=== PATIENT | female | born 1975 | race Caucasian/White ===

== ENCOUNTER 2020-07-10 07:28 | Inpatient (IN) | payer OTHER ==
--- NOTE | 2020-07-10 08:34 | PDOC ---
History of Present Illness - General Chief Complaint: Chest Pain Stated Complaint: CHEST PAIN Time Seen by Provider: 07/10/20 07:47 - History of Present Illness Initial Comments: 07/10/20 08:25 45-year-old female with a history of COVID complicated by cardiomyopathy presents to the emergency department with progressive chest pressure as well as arrhythmias while at work. Patient works as an L&D nurse and has been experiencing worsening fatigue over the span of 5 months. Overnight while on shift, the patient began to experience chest pressure and was connected to a air sampling and monitoring and was noted to have several wide-complex beats as well as a tachyarrhythmia. The patient reports that the wide complexes resolved on their own, but she has residual chest discomfort in the center of her chest. The pain does not radiate. She also reports associated shortness of breath and exertional fatigue. Denies any fevers, chills, cough, headache, focal weakness or numbness, abdominal pain, urinary symptoms, lower extremity edema. Denies any history of clots. Last menstrual period was July 06. The patient has been seen by a cheese factory worker at [employer] and had a Holter monitor which revealed wide-complex tachycardias that self resolved. Had an echo weeks ago and was also told she may have some mitral regurgitation. She was referred to a commercial carpet installer but has had difficulty following up due to the pandemic. A few months ago, the patient was diagnosed with raynaud's when her hands began to turn blue in the cold. Past History - Medical History Allergies/Adverse Reactions: Allergies Allergy/AdvReac Type Severity Reaction Status Date / Time doxycycline Allergy Verified 07/10/20 07:32 Home Medications: Ambulatory Orders Metoclopramide HCl [Reglan] 5 mg PO DAILY 07/10/20 Pantoprazole Sodium [Protonix] 40 mg PO DAILY 07/10/20 Anemia: No Asthma: Yes Cancer: No Cardiac Disorders: Yes CVA: No COPD: No CHF: No Dementia: No Diabetes: No GI Disorders: Yes (IBS CONSTIPATION) Disorders: No HTN: No Hypercholesterolemia: No Liver Disease: No Seizures: No Thyroid Disease: No - Surgical History Abdominal Surgery: No Appendectomy: No Cardiac Surgery: No Cholecystectomy: No Lung Surgery: No Neurologic Surgery: No Orthopedic Surgery: No - Reproductive History Is Patient Now?: No - Immunization History Td Vaccination: Yes TDAP Vaccination: Yes Immunization Up to Date: Yes - Psycho-Social/Smoking History Smoking Status: No Smoking History: Never smoked Number of Cigarettes Smoked Daily: 0 - Substance Abuse Hx (Audit-C & DAST Scrn) How often the patient has a drink containing alcohol: Monthly or less Score: In Men: 4 or > Positive; In Women: 3 or > Positive: 1 Screen Result (Pos requires Nsg. Audit-10AR): Negative In the last yr the pt used illegal drug/Rx for NonMed reason: No Score: Yes response is considered Positive: 0 Screen Result (Positive result requires Nsg. DAST-10): Negative Review of Systems - Review of Systems Comments:: 07/10/20 08:34 GENERAL/CONSTITUTIONAL: No fever or chills. No weakness. +fatigue HEAD, EYES, EARS, NOSE AND THROAT: No change in vision. No ear pain or discharge. No sore throat. GASTROINTESTINAL: No nausea, vomiting, diarrhea or constipation. GENITOURINARY: No dysuria, frequency, or change in urination. CARDIOVASCULAR: +chest pain and shortness of breath. RESPIRATORY: No cough, wheezing, or hemoptysis. MUSCULOSKELETAL: No joint or muscle swelling or pain. No neck or back pain. SKIN: No rash NEUROLOGIC: No headache, vertigo, loss of consciousness, or change in strength/sensation. ENDOCRINE: No increased thirst. No abnormal weight change. HEMATOLOGIC/LYMPHATIC: No anemia, easy bleeding, or history of blood clots. ALLERGIC/IMMUNOLOGIC: No hives or skin allergy. *Physical Exam - Vital Signs Last Vital Signs Temp Pulse Resp BP Pulse Ox 97.9 F 84 18 137/81 100 07/10/20 07:32 07/10/20 07:32 07/10/20 07:32 07/10/20 07:32 07/10/20 07:32 - Physical Exam 07/10/20 08:35 GENERAL: Awake, alert, and fully oriented, in no acute distress EYES: PERRLA, EOMI, sclera anicteric, conjunctiva clear ENT: Nares patent, oropharynx clear without exudates. Moist mucosa NECK: Normal ROM, supple, no lymphadenopathy, JVD, or masses LUNGS: Breath sounds equal, clear to auscultation bilaterally. No wheezes, and no crackles HEART: Regular rate and rhythm, normal S1 and S2, no murmurs, rubs or gallops ABDOMEN: Soft, nontender, normoactive bowel sounds. No guarding, no rebound. No masses EXTREMITIES: Normal range of motion, no edema. No clubbing or cyanosis. No cords, erythema, or tenderness NEUROLOGICAL: Normal speech, cranial nerves intact, 5/5 strength in all 4 extremities, normal sensation to light touch in all 4 extremities, normal cerebellar exam, normal gait SKIN: Warm, Dry, normal turgor, no rashes or lesions noted. Heart Score/ECG Review #1 07/10/20 11:19 Twelve-lead EKG was performed and reviewed by me. Normal sinus rhythm, rate 79. Normal axis. Sinus arrhythmia noted, likely secondary to respiratory variation. No ST elevations. ED Treatment Course - LABORATORY CBC & Chemistry Diagram: 07/10/20 08:10 07/10/20 08:10 - RADIOLOGY Radiology Studies Ordered: Category Date Time Status CHEST X-RAY PORTABLE* [RAD] Stat Radiology 07/10/20 07:53 Ordered Medical Decision Making - Critical Care Time Total Critical Care Time (minutes): 35 Critical Care Statement: The care of this patient involved high complexity decision making to prevent further life threatening deterioration of the patient's condition and/or to evaluate & treat vital organ system(s) failure or risk of failure. 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 Perez, he will discuss the case with the cheese factory worker that the patient saw at [facility]. He states he will come in to see the patient today. He recommends admission to telemetry. Case discussed with Dr. Ball, patient accepted for admission under Dr. Gallo's service. The patient is clinically stable and has no complaints at this time Case discussed in detail with admitting physician including history, physical exam and ancillary studies. Admitting physician has assumed care for the patient, will follow all pending diagnostics and will complete the evaluation and treatment. Discharge - Discharge Information Problems reviewed: Yes Clinical Impression/Diagnosis: Tachyarrhythmia, Ventricular tachycardia, Chest pain, Shortness of breath, Weakness - Follow up/Referral - Patient Discharge Instructions - Post Discharge Activity
[2020-07-10 08:52] LABS: INR 1.01 (0.83-1.09); PROTHROMBIN TIME (PATIENT) 11.9 SEC (9.7-13.0)
[2020-07-10 08:55] LABS: ACTIVATED PTT 27.5 SECONDS (25.2-36.5)
[2020-07-10 09:24] LABS: ALBUMIN 3.6 g/dl (3.4-5.0); ALK PHOS 69 U/L (45-117); ANION GAP 5 MMOL/L (8-16); BILIRUBIN,TOTAL 1.3 mg/dL (0.2-1); CALCIUM 8.8 mg/dL (8.5-10.1); CHLORIDE 107 mmol/L (98-107); CO2 25 mmol/L (21-32); CREATININE 0.8 mg/dL (0.55-1.3); GLUCOSE,RANDOM 100 mg/dL (74-106); N-TERMINAL BNP 97.2 pg/ml (5-125); POTASSIUM 3.8 mmol/L (3.5-5.1); SGOT/AST 29 U/L (15-37); SGPT/ALT 38 U/L (13-61); SODIUM 137 mmol/L (136-145); TOT PROT 7.2 g/dl (6.4-8.2)
[2020-07-10 09:27] LABS: BASO % 0.3 % (0-2.0); EOS % 1.4 % (0-4.5); HEMATOCRIT 43.5 % (32.4-45.2); HEMOGLOBIN 14.3 GM/dL (10.7-15.3); LYMPH % 45.1 % (8-40); MCH 31.7 pg (25.7-33.7); MCHC 32.9 g/dl (32.0-36.0); MEAN CELL VOLUME 96.5 fl (80-96); MONO % 10.9 % (3.8-10.2); NEUT % 42.3 % (42.8-82.8); PLATELET COUNT 293 K/MM3 (134-434); RBC 4.51 M/mm3 (3.60-5.2); RDW 13.7 % (11.6-15.6); WHITE BLOOD COUNT 9.4 K/mm3 (4.0-10.0)
--- NOTE | 2020-07-10 10:33 | EKG ---
Test Reason : Blood Pressure : / mmHG Vent. Rate : 079 BPM Atrial Rate : 079 BPM P-R Int : 120 ms QRS Dur : 078 ms QT Int : 380 ms P-R-T Axes : 069 032 046 degrees QTc Int : 435 ms NORMAL SINUS RHYTHM WITH SINUS ARRHYTHMIA NORMAL ECG WHEN COMPARED WITH ECG OF 26-SEP-2016 03:26, RSR' PATTERN IN V1 IS NO LONGER PRESENT Confirmed by UVALDO GRADY MD ([id number]) on 07/10/2020 10:33:36 AM Referred By: Confirmed By:UVALDO GRADY MD
--- NOTE | 2020-07-10 11:29 | HP ---
CHIEF COMPLAINT: chets pressure; palpitations PCP: HISTORY OF PRESENT ILLNESS: 45 y.o female with PMH of COVID 19 (diganosed back in january), IBS, newly diagnosed raynauds presents to the ED with complaints of palpitations and chest pressure that started during her care professional last night- of note patients init ial presenting symptoms of covid were wide-complex tachycardia (specifically v- tach) along with chest pressure, she has since then been having these episodes where she gets palpitations associated with ELLISON, some arm radiation and slight dizziness if she is ambulatory. she had seen 2 cardiologists one back in january where a 2 week holter monitor was done and then around a month ago, where she was referred to an eating disorder specialist however she has not had the chance to see him yet. last night episode was different than her usual symptoms in the fact that is was consistent throughout her whole shift- it did not dissipate and she was very symptomatic she was hooked up to a tele monitor at work and she was having multiple episodes of 45 y.o female with PMH of COVID 19 (diganosed back in january), IBS, newly diagnosed raynauds presents to the ED with complaints of palpitations and chest pressure that started during her care professional last night- (1)afebrile; normotenisve; multiple tele strips showing NSVT (with rates in the 160;s) multiple episodes of vtach (2)wbc normal; K 3.8 Cr 0,8 mag 2.0 (3)CXR negative; CTA showed no PE however revealed 2 lung nodules Recent Travel: denies PAST MEDICAL HISTORY: see above PAST SURGICAL HISTORY: colorectal surgery , inguinal hernia repair Social History: Smoking:denies Alcohol:social alcohol use Drugs: denies Allergies doxycycline Allergy (Verified 07/10/20 07:32) HOME MEDICATIONS: Home Medications Medication Instructions Recorded Metoclopramide HCl [Reglan] 5 mg PO DAILY 07/10/20 Pantoprazole Sodium [Protonix] 40 mg PO DAILY 07/10/20 REVIEW OF SYSTEMS CONSTITUTIONAL: Absent: fever, chills, diaphoresis, generalized weakness, malaise, loss of appetite, weight change HEENT: Absent: rhinorrhea, nasal congestion, throat pain, throat swelling, difficulty swallowing, mouth swelling, ear pain, eye pain, visual changes CARDIOVASCULAR: Present: palpitations Absent: chest pain, syncope, palpitations, irregular heart rate, lightheadedness, peripheral edema RESPIRATORY: Absent: cough, shortness of breath, dyspnea with exertion, orthopnea, wheezing, stridor, hemoptysis GASTROINTESTINAL: Absent: abdominal pain, abdominal distension, nausea, vomiting, diarrhea, constipation, melena, hematochezia GENITOURINARY: Absent: dysuria, frequency, urgency, hesitancy, hematuria, flank pain, genital pain MUSCULOSKELETAL: Absent: myalgia, arthralgia, joint swelling, back pain, neck pain SKIN: Absent: rash, itching, pallor HEMATOLOGIC/IMMUNOLOGIC: Absent: easy bleeding, easy bruising, lymphadenopathy, frequent infections ENDOCRINE: Absent: unexplained weight gain, unexplained weight loss, heat intolerance, cold intolerance NEUROLOGIC: Absent: headache, focal weakness or paresthesias, dizziness, unsteady gait, seizure, mental status changes, bladder or bowel incontinence PSYCHIATRIC: Absent: anxiety, depression, suicidal or homicidal ideation, hallucinations. PHYSICAL EXAMINATION Vital Signs - 24 hr 07/10/20 07/10/20 07/10/20 07:32 09:03 10:03 Temperature 97.9 F Pulse Rate 84 Pulse Rate [ 77 77 Left Apical] Respiratory 18 100 H 18 Rate Blood Pressure 137/81 Blood Pressure 125/80 112/79 [Left Arm] O2 Sat by Pulse 100 100 99 Oximetry (%) 07/10/20 10:56 Temperature Pulse Rate Pulse Rate [ 70 Left Apical] Respiratory 18 Rate Blood Pressure Blood Pressure 105/70 [Left Arm] O2 Sat by Pulse 99 Oximetry (%) GENERAL: Awake, alert, and fully oriented, in no acute distress. EYES: PEERLA: EOMI no scleral icterus NECK: no JVD; no lymphadenopathy LUNGS: CTA B/L no rales, rhonchi or wheezing HEART: RRR, normal S1 and S2 without murmur, rub or gallop. ABDOMEN: Soft, NT ND +BS in all 4 quadrants MUSCULOSKELETAL: Normal range of motion at all joints. No bony deformities or tenderness. No CVA tenderness. EXTREMITIES: warm; well-perfused no clubbing/cyanosis or edema NEUROLOGICAL: Cranial nerves II-XII intact. Normal speech. Normal gait. PSYCHIATRIC: Cooperative. Good eye contact. Appropriate mood and affect. SKIN: Warm, dry, normal turgor, no rashes or lesions noted, normal capillary refill. Laboratory Results - last 24 hr 07/10/20 07/10/20 07/10/20 08:10 08:10 08:10 WBC 9.4 RBC 4.51 Hgb 14.3 Hct 43.5 MCV 96.5 H MCH 31.7 MCHC 32.9 RDW 13.7 Plt Count 293 MPV 10.0 Absolute Neuts (auto) 4.0 Neutrophils % 42.3 L Lymphocytes % 45.1 H Monocytes % 10.9 H Eosinophils % 1.4 Basophils % 0.3 Nucleated RBC % 0 PT with INR 11.90 INR 1.01 PTT (Actin FS) 27.5 Sodium Potassium Chloride Carbon Dioxide Anion Gap BUN Creatinine Est GFR (CKD-EPI)AfAm Est GFR (CKD-EPI)NonAf Random Glucose Calcium Magnesium Total Bilirubin AST ALT Alkaline Phosphatase Troponin I B-Natriuretic Peptide Total Protein Albumin TSH Serum , Qual Negative Blood Type Antibody Screen 07/10/20 07/10/20 08:10 08:10 WBC RBC Hgb Hct MCV MCH MCHC RDW Plt Count MPV Absolute Neuts (auto) Neutrophils % Lymphocytes % Monocytes % Eosinophils % Basophils % Nucleated RBC % PT with INR INR PTT (Actin FS) Sodium 137 Potassium 3.8 Chloride 107 Carbon Dioxide 25 Anion Gap 5 L BUN 13.0 Creatinine 0.8 Est GFR (CKD-EPI)AfAm 103.92 Est GFR (CKD-EPI)NonAf 89.66 Random Glucose 100 Calcium 8.8 Magnesium 2.0 Total Bilirubin 1.3 H AST 29 ALT 38 Alkaline Phosphatase 69 Troponin I < 0.02 B-Natriuretic Peptide 97.2 Total Protein 7.2 Albumin 3.6 TSH 1.95 Serum , Qual Blood Type O POSITIVE Antibody Screen Negative ASSESSMENT/PLAN: 45 y.o female with PMH of COVID 19 (diganosed back in january), IBS, newly diagnosed raynauds presents to the ED with complaints of palpitations and chest pressure that started during her care professional last night #Palpitations tele strips showing NSVT as well as wide complex tachycardia -Dr Perez consulted; -echo ordered to assess for any structural abnormalities -TSH ordered -ensure Mag >2 K >4 -tele monitoring -patient may need to be started on beta blockade or other rate controlling agent -EP workup as ablation may be needed -NS bolus #IBS c/w protonix 40 daily c/w reglan 5 daily f/e/n not on standing fluids monitor electrolytes soidum controlled diet dipso: tele dvt ppx: lovenox Family Medical History Family History: As Documented Family Hx Cardiac Disorders: Father Problem List - Problem (1) Chest pain Code(s): R07.9 - CHEST PAIN, UNSPECIFIED (2) Shortness of breath Code(s): R06.02 - SHORTNESS OF BREATH (3) Tachyarrhythmia Code(s): R00.0 - TACHYCARDIA, UNSPECIFIED (4) Ventricular tachycardia Code(s): I47.2 - VENTRICULAR TACHYCARDIA Visit type - Emergency Visit Emergency Visit: Yes ED Registration Date: 07/10/20 Care time: The patient presented to the Emergency Department on the above date and was hospitalized for further evaluation of their emergent condition. - New Patient This patient is new to me today: Yes Date on this admission: 07/10/20 - Critical Care Critical Care patient: No ATTENDING PHYSICIAN STATEMENT I saw and evaluated the patient. I reviewed the resident's note and discussed the case with the resident. I agree with the resident's findings and plan as documented. SUBJECTIVE: OBJECTIVE: ASSESSMENT AND PLAN:
--- NOTE | 2020-07-10 11:35 | PN ---
Teaching Attending Note Name of Resident: Taryn Ball ATTENDING PHYSICIAN STATEMENT I saw and evaluated the patient. I reviewed the resident's note and discussed the case with the resident. I agree with the resident's findings and plan as documented. 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 Patient reports last night was not her usual palpitations due to increased duration of symptoms and she did not have the episode self-resolve. Pt at her place of work was put onto telemetry monitoring which exhibited wide-complex monomorphic tachycardia while patient had ongoing lightheadedness and diffuse chest pressure symptoms. Of note, pt had COVID-19 infection during January 2020 where she was noted to develop monomorphic Ventricular tachycardia. Since then she would have intermittent episodes of dyspnea with exertion and associated lightheadedness while ambulatory. Patient has seen two cardiologists in January (last visit: Dr. Norma Piedra 01/15) where she was evaluated with holter monitor and was subsequently sent for EP referral. She has not been able to see the EP physician as of yet. PAST SURGICAL HISTORY: colorectal surgery , inguinal hernia repair Social History: Smoking:denies Alcohol:social alcohol use Drugs: denies Allergies doxycycline Allergy (Verified 07/10/20 07:32) OBJECTIVE: Vital Signs Temperature 97.9 F 07/10/20 07:32 Pulse Rate 73 07/10/20 11:37 Respiratory Rate 18 07/10/20 11:37 Blood Pressure 113/78 07/10/20 11:37 O2 Sat by Pulse Oximetry (%) 97 07/10/20 11:37 GENERAL: Awake, alert, and fully oriented, in no acute distress. HEENT: no scleral icterus, MMM NECK: no JVD, no thyromegaly or nodulation appreciated, no carotid bruits LUNGS: CTA B/L no rales, rhonchi or wheezing HEART: RRR, normal S1 and S2 with 2/6 systolic murmur at apex without radiation to axilla ABDOMEN: Soft, ND/NT, +BS EXTREMITIES: warm; well-perfused no edema PSYCHIATRIC: Cooperative. Good eye contact. Appropriate mood and affect. SKIN: Warm, dry, no rashes or lesions noted CBC, BMP 07/10/20 08:10 09/04/20 08:10 ASSESSMENT AND PLAN: Symptomatic Wide-complex Tachyarrhythmias Hyperlipidemia with low risk ASCVD cohort score History of Reynaud's Phenomenon History of GERD --Given symptomatic tachyarrhythmia will admit to telemetry with cardiology consulted --Obtain information from patient's neurology technician and EP physician she was to see --Obtain echocardiogram from [facility]'s; if unable to do so then patient will need another study to be performed for structural heart changes --Trend troponins for x2 negative given cardiac symptoms per patient --Monitor electrolytes and replete as needed --Continue diet and exercise for ASCVD <0.3% with hyperlipidemia noted on October studies --Continue home medications Dispo: Telemetry; pending cardiology consult --> EP needed inpatient vs. home with outpatient f/u if symptoms resolve and HR remains controlled DO Krystle Quiroz IM
--- NOTE | 2020-07-10 14:10 | CON.CARD ---
Consult Consult Specialty:: Cardiology Referred by:: Emergency Medicine Reason for Consultation:: PSVT, PVC, PAC - History of Present Illness Chief Complaint: Chest pain, palpitations History of Present Illness: 45yo F with h/o GERD, IBS, Raynaud's phenomenon, hyperlipidemia, palpitations, PVC, last saw Dr. 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 Patient reports last night was not her usual palpitations due to increased duration of symptoms and she did not have the episode self-resolve. Pt at her place of work was put onto telemetry monitoring which exhibited PSVT, PVC, PAC while patient had ongoing lightheadedness and diffuse chest pressure symptoms. Of note, pt had COVID-19 infection during January 2020 where she was noted to deve lop monomorphic Ventricular tachycardia. Since then she would have intermittent episodes of dyspnea with exertion and associated lightheadedness while ambulatory. Patient has seen two cardiologists in January where she was evaluated with holter monitor and was subsequently sent for EP referral. She has not been able to see the EP physician as of yet. PAST SURGICAL HISTORY: colorectal surgery , inguinal hernia repair Social History: Smoking:denies Alcohol:social alcohol use Drugs: denies - History Source History Provided By: Patient Limitations to Obtaining History: No Limitations - Past Medical History ...LMP: 07/06/20 ...: No - Alcohol/Substance Use Hx Alcohol Use: Yes - Smoking History Smoking history: Never smoked Aproximately how many cigarettes per day: 0 Home Medications - Allergies Allergies/Adverse Reactions: Allergies Allergy/AdvReac Type Severity Reaction Status Date / Time apple Allergy Verified 07/10/20 13:03 doxycycline Allergy Verified 07/10/20 07:32 gluten Allergy Verified 07/10/20 13:02 - Home Medications Home Medications: Ambulatory Orders Metoclopramide HCl [Reglan] 5 mg PO DAILY 07/10/20 Pantoprazole Sodium [Protonix] 40 mg PO DAILY 07/10/20 Plecanatide [Trulance] 3 mg PO DAILY 07/10/20 Family Medical History Family Hx Cardiac Disorders: Father Review of Systems - Review of Systems Cardiovascular: reports: Chest Pain, Palpitations, Shortness of Breath Respiratory: reports: Exercise Intolerance, SOB, SOB on Exertion Vital Signs: Vital Signs Temperature 97.9 F 07/10/20 07:32 Pulse Rate 73 07/10/20 11:37 Respiratory Rate 18 07/10/20 11:37 Blood Pressure 113/78 07/10/20 11:37 O2 Sat by Pulse Oximetry (%) 97 07/10/20 11:37 Constitutional: Yes: No Distress, Calm Neck: Yes: Supple Respiratory: Yes: Regular, CTA Bilaterally Gastrointestinal: Yes: Normal Bowel Sounds, Soft Cardiovascular: Yes: Regular Rate and Rhythm JVD: No Carotid Bruit: No Heart Sounds: Yes: S1, S2 Edema: No - Other Data Labs, Other Data: CBC, BMP 07/10/20 08:10 07/10/20 08:10 INR, PTT INR 1.01 (0.83-1.09) 07/10/20 08:10 Troponin, BNP 07/10/20 08:10 Troponin I < 0.02 B-Natriuretic Peptide 97.2 Troponin, BNP 07/10/20 08:10 Troponin I < 0.02 B-Natriuretic Peptide 97.2 NSR @ 79 Tele: PSVT, PAC, PVC Echo: Report Reviewed Ejection Fraction %: LVEF > or = 40 % Imaging - Results Chest X-ray: Report Reviewed (NAD) Problem List - Problems (1) PVC (premature ventricular contraction) Code(s): I49.3 - VENTRICULAR PREMATURE DEPOLARIZATION (2) PAC (premature atrial contraction) Code(s): I49.1 - ATRIAL PREMATURE DEPOLARIZATION (3) PSVT (paroxysmal supraventricular tachycardia) Code(s): I47.1 - SUPRAVENTRICULAR TACHYCARDIA (4) Chest pain Code(s): R07.9 - CHEST PAIN, UNSPECIFIED Qualifiers: Chest pain type: precordial pain Qualified Code(s): R07.2 - Precordial pain (5) Shortness of breath Code(s): R06.02 - SHORTNESS OF BREATH (6) Intermittent palpitations Code(s): R00.2 - PALPITATIONS Assessment/Plan 07/10/2020 Chest CTA: No PE, 0.3 cm new RUL nodule and unchanged 0.2 cm TODD nodule c/w 09/16/2015 07/10/2020 TTE: Normal LV and RV size and fxn LVEF 55-60%, tr MR, tr-mild TR, no AR or , tr DC 07/10/2020 ECG: NSR @ 79 QTc 435 msec 1. Palpitations, chest pain, dyspnea referable to PSVT, PAC, PVC 2. Possible Raynauds phenomenon 3. GERD, IBS 4. Pulm nodules P:1. D/w patient and 2. Trial of Toprol XL 25 qd with monitor Raynauds symptoms and uptitration as tolerated 3. Addressed EP study and RFA ablation as definitive therapy, they prefer to seek consult with [facility] 4. Ruled out for [place], TSH reviewed, repeat chest CT 6 months 5. Thank you for consultative opportunity
[2020-07-10 15:19] LABS: PH,URINE 7.5 (5.0-8.0); URINE APPEARANCE CLOUDY; URINE BILIRUBIN NEGATIVE (NEGATIVE); URINE COLOR YELLOW; URINE GLUCOSE (UA) NEGATIVE (NEGATIVE); URINE KETONE NEGATIVE (NEGATIVE); URINE LEUK ESTERASE NEGATIVE (NEGATIVE); URINE NITRITE NEGATIVE (NEGATIVE); URINE PROTEIN NEGATIVE (NEGATIVE)
--- NOTE | 2020-07-10 15:25 | ECHO ---
Version: 1 Name: TEOFILO HINOJOSA Exam: Adult Echocardiogram Study Date: 07/10/2020, 2:36 PM Age: 45 Years MMode/2D Measurements & Calculations IVSd: 0.85 cm LVIDs: 2.7 cm LVIDd: 3.8 cm LVPWd: 1.23 cm LAV (MOD-bp): 37.5 ml LVOT diam: 2.02 cm Ao root diam: 3.1 cm LA dimension: 2.32 cm Doppler Measurements & Calculations MV E max miguel: 55.3 cm/sec Med E/e': 6.8 MV A max miguel: 46.1 cm/sec Med Peak E' Miguel: 8.2 cm/sec MV E/A: 1.20 Lat E/e': 5.3 Lat Peak E' Miguel: 10.4 cm/sec Ao max P.0 mmHg Ao V2 max: 111.1 cm/sec TR max miguel: 228.0 cm/sec TR max P.8 mmHg Left Ventricle The left ventricular size, thickness and function are normal. Left ventricular systolic function is normal. Ejection Fraction = 55-60%. The transmitral spectral Doppler flow pattern is normal for age. Right Ventricle The right ventricle is normal in size and function. Atria The left atrial size is normal. Right atrial size is normal. The interatrial septum is intact with n o evidence for an atrial septal defect. Mitral Valve The mitral valve is normal in structure and function. There is no mitral valve stenosis. There is tr jose c mitral regurgitation. Tricuspid Valve The tricuspid valve is normal in structure and function. There is Trace to mild tricuspid regurgitat ion. Right ventricular systolic pressure is normal. Aortic Valve The aortic valve opens well. No hemodynamically significant valvular aortic stenosis. No aortic regu rgitation is present. Pulmonic Valve The pulmonic valve is not well seen, but is grossly normal. There is no pulmonic valvular stenosis. Trace pulmonic valvular regurgitation. Great Vessels The aortic root is normal size. Normal IVC size and contractility. Pericardium/Pleura There is no pericardial effusion. Summary Statements The left ventricular size, thickness and function are normal Ejection Fraction = 55-60%. The right ventricle is normal in size and function. There is trace mitral regurgitation. There is Trace to mild tricuspid regurgitation. Right ventricular systolic pressure is normal. No hemodynamically significant valvular aortic stenosis. The aortic root is normal size. There is no pericardial effusion. MD Castro *Alex 07/10/2020, 3:25 PM Ordering Physician: Jeffery Perez Referring Physician: JEFFERY PEREZ Performed By: Gavi Russell
[2020-07-10 15:54] VITALS: BMI 28.7
[2020-07-10] MEDS: metoPROLOL SUCCINATE 25 MG TAB.SR.24H (FP) PO SCH (16:46)
[2020-07-10 20:13] LABS: BILIRUBIN,DIRECT 0.4 mg/dL (0.0-0.2)
[2020-07-11 07:46] LABS: BASO % 0.5 % (0-2.0); EOS % 1.8 % (0-4.5); HEMATOCRIT 45.4 % (32.4-45.2); HEMOGLOBIN 15.3 GM/dL (10.7-15.3); LYMPH % 42.7 % (8-40); MCHC 33.8 g/dl (32.0-36.0); MEAN CELL VOLUME 97.6 fl (80-96); MEAN PLT VOLUME 10.2 fl (7.5-11.1); MONO % 10.7 % (3.8-10.2); NEUT % 44.3 % (42.8-82.8); PLATELET COUNT 279 K/MM3 (134-434); RBC 4.65 M/mm3 (3.60-5.2); RDW 13.3 % (11.6-15.6); WHITE BLOOD COUNT 8.9 K/mm3 (4.0-10.0)
[2020-07-11 08:07] LABS: ALBUMIN 3.4 g/dl (3.4-5.0); BILIRUBIN,TOTAL 1.4 mg/dL (0.2-1); CREATININE 0.7 mg/dL (0.55-1.3); MAGNESIUM 2.2 mg/dL (1.8-2.4); POTASSIUM 4.6 mmol/L (3.5-5.1); TOT PROT 6.7 g/dl (6.4-8.2)
[2020-07-11] MEDS ORDERED: METOCLOPRAMIDE HCL 10 MG TABLET (FP) PO SCH (10:00)
[2020-07-11] MEDS ORDERED: ENOXAPARIN NA (PORCINE) 40 MG/0.4 ML DISP.SYRIN SQ SCH (10:00)
[2020-07-11] MEDS ORDERED: PANTOPRAZOLE 40 MG TABLET PO SCH (10:00)
[2020-07-11] MEDS: metoPROLOL SUCCINATE 25 MG TAB.SR.24H (FP) PO SCH (10:00)
--- NOTE | 2020-07-11 10:34 | PN ---
Progress Note, Physician History of Present Illness: 45yo F with h/o GERD, IBS, Raynaud's phenomenon, hyperlipidemia, palpitations, PVC, last saw Dr. 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 Patient reports last night was not her usual palpitations due to increased duration of symptoms and she did not have the episode self-resolve. Pt at her place of work was put onto telemetry monitoring which exhibited PSVT, PVC, PAC while patient had ongoing lightheadedness and diffuse chest pressure symptoms. Of note, pt had COVID-19 infection during January 2020 where she was noted to develop monomorphic Ventricular tachycardia. Since then she would have interm ittent episodes of dyspnea with exertion and associated lightheadedness while ambulatory. Patient has seen two cardiologists in January where she was evaluated with holter monitor and was subsequently sent for EP referral. She has not been able to see the EP physician as of yet. - Current Medication List Current Medications: Active Medications Enoxaparin Sodium (Lovenox -) 40 mg SQ DAILY [facility] Last Admin: 07/11/20 10:01 Dose: 40 mg Documented by: Metoclopramide HCl (Reglan -) 5 mg PO DAILY [facility] Last Admin: 07/11/20 10:00 Dose: 5 mg Documented by: Metoprolol Succinate (Toprol Xl -) 25 mg PO DAILY [facility] Last Admin: 07/11/20 10:00 Dose: 25 mg Documented by: Pantoprazole Sodium (Protonix -) 40 mg PO DAILY [facility] Last Admin: 07/11/20 10:00 Dose: 40 mg Documented by: - Objective Vital Signs: Vital Signs Temperature 98.2 F 07/11/20 09:55 Pulse Rate 67 07/11/20 09:55 Respiratory Rate 18 07/11/20 09:55 Blood Pressure 130/78 07/11/20 09:55 O2 Sat by Pulse Oximetry (%) 98 07/11/20 09:55 Eyes: Yes: WNL, Conjunctiva Clear, EOM Intact HENT: Yes: WNL, Atraumatic, Normocephalic Neck: Yes: WNL, Supple, Trachea Midline Cardiovascular: Yes: WNL, Regular Rate and Rhythm Respiratory: Yes: WNL, Regular, CTA Bilaterally Gastrointestinal: Yes: WNL, Normal Bowel Sounds Genitourinary: Yes: WNL Musculoskeletal: Yes: WNL Extremities: Yes: WNL Edema: No Integumentary: Yes: WNL Neurological: Yes: WNL, Alert, Oriented ...Motor Strength: WNL Psychiatric: Yes: WNL Labs: CBC, BMP 07/11/20 05:32 07/11/20 05:32 INR, PTT INR 1.01 (0.83-1.09) 07/10/20 08:10 Assessment/Plan Assessment/Plan 07/10/2020 Chest CTA: No PE, 0.3 cm new RUL nodule and unchanged 0.2 cm TODD nodule c/w 09/16/2015 07/10/2020 TTE: Normal LV and RV size and fxn LVEF 55-60%, tr MR, tr-mild TR, no AR or , tr SD 07/10/2020 ECG: NSR @ 79 QTc 435 msec 1. Palpitations, chest pain, dyspnea referable to PSVT, PAC, PVC Telemetry showed 5 beats Non-sustained VT 2. Possible Raynauds phenomenon 3. GERD, IBS 4. Pulm nodules Plan; Cont Toprol EP evaluation inpatient re Non-sustained VT Ruled out for [place], TSH reviewed, repeat chest CT [address] Perez
[2020-07-11] MEDS ORDERED: metoPROLOL SUCCINATE 25 MG TAB.SR.24H (FP) PO ONE (12:00)
--- NOTE | 2020-07-11 12:24 | DS ---
Physical Examination Vital Signs: Vital Signs Temperature 98.2 F 07/11/20 09:55 Pulse Rate 72 07/11/20 12:19 Respiratory Rate 18 07/11/20 09:55 Blood Pressure 136/88 07/11/20 12:19 O2 Sat by Pulse Oximetry (%) 98 07/11/20 09:55 Constitutional: Yes: No Distress, Calm Cardiovascular: Yes: Regular Rate and Rhythm Respiratory: Yes: CTA Bilaterally Gastrointestinal: Yes: Normal Bowel Sounds, Soft. No: Tenderness Edema: No Labs: CBC, BMP 07/11/20 05:32 07/11/20 05:32 Discharge Summary Problems reviewed: Yes Reason For Visit: VENTRICULAR TACHYCARDIA,TACHYARRHYTHMIA Current Active Problems Chest pain (Acute) Intermittent palpitations (Acute) PAC (premature atrial contraction) (Acute) PSVT (paroxysmal supraventricular tachycardia) (Acute) PVC (premature ventricular contraction) (Acute) Shortness of breath (Acute) Tachyarrhythmia (Acute) Ventricular tachycardia (Acute) Weakness (Acute) Hospital Course: HISTORY OF PRESENT ILLNESS: 45 y.o female with PMH of COVID 19 (diganosed back in january), IBS, newly diagnosed raynauds presents to the ED with complaints of palpitations and 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 she had seen 2 cardiologists one back in january where a 2 week holter monitor was done and then around a month ago, where she was referred to an leasing specialist however she has not had the chance to see him yet. 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- (1)afebrile; normotenisve; multiple tele strips showing NSVT (with rates in the 160;s) multiple episodes of vtach (2)wbc normal; K 3.8 Cr 0,8 mag 2.0 (3)CXR negative; CTA showed no PE however revealed 2 lung nodules HOSPITAL COURSE Seen by cardiology and leasing specialist Pt started on Metoprolol 25mg daily and increased to 50mg today She will be getting EP studies as an outpt -- will be calling him in 3 days for appt pt is stable HR better no dizziness stable for dc home with outpatient follow up Condition: Good - Instructions Referrals: Rashmi Thomas MD [Staff Physician] - Yobany Amaral MD [Staff Physician] - Disposition: HOME - Home Medications Comprehensive Discharge Medication List: Ambulatory Orders Metoclopramide HCl [Reglan] 5 mg PO DAILY 07/10/20 Pantoprazole Sodium [Protonix] 40 mg PO DAILY 07/10/20 Plecanatide [Trulance] 3 mg PO DAILY 07/10/20
--- NOTE | 2020-07-11 13:35 | CON.CARD ---
Consult Consult Specialty:: Cardiac Electrophysiology Referred by:: Dr. Curtis Reason for Consultation:: PSVT. NSVT. Palpitations - History of Present Illness Chief Complaint: Palpitations History of Present Illness: Ms. Castrejon is a 45 year old female with a pmh of GERD, IBS, Raynaud's phenomenon, hyperlipidemia, palpitations, PVC, who presented due to persistent palpitations. 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 The patient states that she originally started feeling ill in November 2019. She developed symptoms of malaise, general not feeling well. Symptoms persisted un january when she presented to [place] [facility] with palpitations. She was discharged home. Due to recurrent symptoms two days later she underwent covid testing which was abnormal. She did not need to be hospitalized. She subsequently saw Dr. Hazel Piedra 01/16/2020 for chest pressure, palpitations and dyspnea. She underwent an event monitor that reportedly demonstrated PSVT and PVC's. Not available for review. She followed up with Dr. Jass Kerr at [facility] and was referred to EP at [facility]. However, she has not been evaluated as of yet. Her telemetry monitoring at [facility] has shown recurrent non-sustained PSVT and NSVT (brief). Echo with normal LVEF and wall motion. She was started on toprol xl this am. Has not been on beta-blockers previously. Denies any dyspnea, near or true syncope. Palpitations associated with chest discomfort. - History Source History Provided By: Patient, Family Member Limitations to Obtaining History: No Limitations - Past Medical History ...LMP: 07/06/20 ...: No - Alcohol/Substance Use Hx Alcohol Use: Yes - Smoking History Smoking history: Never smoked Aproximately how many cigarettes per day: 0 - Social History Usual Living Arrangement: With Spouse Home Medications - Allergies Allergies/Adverse Reactions: Allergies Allergy/AdvReac Type Severity Reaction Status Date / Time apple Allergy Verified 07/10/20 13:03 doxycycline Allergy Verified 07/10/20 07:32 gluten Allergy Verified 07/10/20 13:02 - Home Medications Home Medications: Ambulatory Orders Pantoprazole Sodium [Protonix] 40 mg PO DAILY 07/10/20 Plecanatide [Trulance] 3 mg PO DAILY 07/10/20 Metoprolol Succinate [Toprol XL -] 50 mg PO DAILY #30 tab.sr.24h 07/11/20 Family Medical History Family History: Unremarkable (no fam hx of scd) Family Hx Cardiac Disorders: Father Review of Systems - Review of Systems Constitutional: denies: Chills, Fever HENT: denies: Difficult Swallowing Neck: denies: No Symptoms Cardiovascular: reports: Chest Pain, Palpitations. denies: Shortness of Breath Respiratory: denies: Hemoptysis, SOB on Exertion, Wheezing Gastrointestinal: denies: Abdominal Pain, Nausea, Vomiting Genitourinary: denies: Dysuria Musculoskeletal: denies: No Symptoms Neurological: reports: No Symptoms Psychiatric: reports: No Symptoms. denies: Anxiety, Depression Vital Signs: Vital Signs Temperature 98.2 F 07/11/20 09:55 Pulse Rate 72 07/11/20 12:19 Respiratory Rate 18 07/11/20 09:55 Blood Pressure 136/88 07/11/20 12:19 O2 Sat by Pulse Oximetry (%) 98 07/11/20 09:55 Constitutional: Yes: Well Nourished, No Distress, Calm Eyes: Yes: WNL, Conjunctiva Clear, EOM Intact HENT: Yes: Atraumatic, Normocephalic Neck: Yes: Supple, Trachea Midline Respiratory: Yes: Regular, CTA Bilaterally Gastrointestinal: Yes: Normal Bowel Sounds, Soft Cardiovascular: Yes: Regular Rate and Rhythm JVD: No Carotid Bruit: No PMI: Non-Displaced Extremities: Yes: WNL Edema: No Peripheral Pulses WNL: Yes Neurological: Yes: Alert, Oriented ...Motor Strength: WNL Psychiatric: Yes: Alert, Oriented - Other Data Labs, Other Data: CBC, BMP 07/11/20 05:32 07/11/20 05:32 INR, PTT INR 1.01 (0.83-1.09) 07/10/20 08:10 Troponin, BNP 07/10/20 13:07 Troponin I < 0.02 Troponin, BNP 07/10/20 13:07 Troponin I < 0.02 Echo: Report Reviewed Ejection Fraction %: LVEF > or = 40 % Imaging - Results EKG: Image Reviewed Problem List - Problems (1) Chest pain Code(s): R07.9 - CHEST PAIN, UNSPECIFIED Qualifiers: Chest pain type: precordial pain Qualified Code(s): R07.2 - Precordial pain (2) Intermittent palpitations Code(s): R00.2 - PALPITATIONS (3) PAC (premature atrial contraction) Code(s): I49.1 - ATRIAL PREMATURE DEPOLARIZATION (4) PSVT (paroxysmal supraventricular tachycardia) Code(s): I47.1 - SUPRAVENTRICULAR TACHYCARDIA (5) PVC (premature ventricular contraction) Code(s): I49.3 - VENTRICULAR PREMATURE DEPOLARIZATION (6) Ventricular tachycardia Code(s): I47.2 - VENTRICULAR TACHYCARDIA Assessment/Plan recent covid infection. normal lvef. with nsvt and psvt, likely AT. possible covid related myocarditis. repeat covid neg. tsh wnl. troponin neg. bnp neg. all events on non-sustained and nsvt is brief. extensive conversation with the patient and her (on phone). pathophysiology of dysarrhythmias discussed at great length. management and treatment options discussed. all questions answered. she was started on toprol xl. pt would like to pursue eventual eps with possible rfa and she has been presented with multiple options, including prior treatment options that were previously presented to her. she will inform on what she would like to do. she would benefit from outpt cardiac mri for furth er evaluation given hx of covid. vagal maneuvers taught and pt and expressed understanding. - ok for d/c home today - keep k 4-4.5, mg 2-2.5 - increase toprol xl to 50 mg po daily - vagal maneuvers as discussed - informed patient that were she to have persistent symptoms despite above, can take additional half dose of toprol xl - outpt eps/rfa. pt will f/u either with prior recommended appointments or myself - outpt cardiac mri - advised to go to urgent care or ER should she have recurrent symptoms despite above - care as per primary services - d/w Dr. Curtis and Dr. Thomas Time spent: 87 minutes Thank you for allowing me to participate in the care of this patient. Please call with any questions.
[2020-07-11 15:39] VITALS: BP 116/78; PULSE 67; TEMP 97.8
== END 2020-07-11 16:00 | disposition home or self-care (01) | DRG 310 ==
LOC: JER 07:28 → JERBED 10:50 → J4W 15:30
PROVIDERS: ADMIT Internal Medicine; ATTEND Internal Medicine
DX: I47.2 Ventricular tachycardia (principal); I49.3 Ventricular premature depolarization; R91.1 Solitary pulmonary nodule; I47.1 Supraventricular tachycardia; R00.2 Palpitations; K58.9 Irritable bowel syndrome, unspecified; K21.9 Gastro-esophageal reflux disease without esophagitis; I73.00 Raynaud's syndrome without gangrene; E78.5 Hyperlipidemia, unspecified; Z86.19 Personal history of other infectious and parasitic diseases
CPT/HCPCS: 36415; 71045-TC-FY; 71275-TC; 80053; 81003; 82248; 83735; 83880; 84100; 84443; 84484; 84703; 85025; 85610; 85730; 86850; 86900; 86901; 87086; 93005; 93010; 93306-TC; 99291; Q9967; U0003

== ENCOUNTER 2021-03-06 10:43 | Emergency (ER) | payer OTHER ==
[2021-03-06 10:49] VITALS: BP 132/82; PULSE 69; BMI 29.9
== END 2021-03-06 11:28 | disposition home or self-care (01) ==
LOC: JERFT 10:43
DX: H10.12 Acute atopic conjunctivitis, left eye (principal)
CPT/HCPCS: 99283-25

== ENCOUNTER 2022-04-21 04:04 | Day surgery (SDC) | payer BC ==
[2022-04-20 13:52] VITALS: BMI 29.7
[2022-04-21 06:37] VITALS: TEMP 98
[2022-04-21] MEDS ORDERED: BUPIVACAINE HCL/PF 0.75% 10 ML VIAL ONE (07:09)
[2022-04-21] MEDS ORDERED: LIDOCAINE HCL/PF 1% SDV 5ML VIAL ONE (07:09)
[2022-04-21] MEDS ORDERED: PROPOFOL 20 ML ONE ×2 (07:36)
[2022-04-21] MEDS ORDERED: LIDOCAINE HCL/PF 2% SDV 5ML VIAL ONE (07:36)
[2022-04-21] MEDS ORDERED: methylPREDNISolone ACET (DEPO) 80 MG/1 ML VIAL ONE (08:05)
[2022-04-21] MEDS ORDERED: methylPREDNISolone ACET (DEPO) 80 MG/1 ML VIAL IM ONE (08:06)
[2022-04-21] MEDS ORDERED: LIDOCAINE HCL 1% PRESERVATIVE FREE - 30ML VIAL IJ ONE (08:06)
[2022-04-21] MEDS ORDERED: BUPIVACAINE HCL/PF 0.75% 10 ML VIAL NR ONE (08:07)
[2022-04-21 09:05] VITALS: BP 123/71; PULSE 78
== END 2022-04-21 08:55 | disposition home or self-care (01) ==
LOC: JASU-SURG 04:04
PROVIDERS: ATTEND Neurological Surgery
PROC: 3E0R33Z Introduction of Anti-inflammatory into Spinal Canal, Percutaneous Approach (ICD-10-PCS; 2022-04-21)
PROC: 3E0R3BZ Introduction of Anesthetic Agent into Spinal Canal, Percutaneous Approach (ICD-10-PCS; principal; 2022-04-21 07:30)
DX: M51.16 Intervertebral disc disorders with radiculopathy, lumbar region (principal)
CPT/HCPCS: 76000-TC-FY; 81025

== ENCOUNTER 2022-08-08 10:00 | Inpatient (IN) | payer BC ==
[2022-09-22 16:38] VITALS: BMI 29.7
[2022-09-26] MEDS ORDERED: BENZOIN/ALOE VERA/STORAX/TOLU 58 ML BOTTLE ONE (07:58)
[2022-09-26] MEDS ORDERED: BUPIVACAINE LIPOSOME/PF (EXPAREL) 266 MG/20 ML VIAL ONE (08:04)
[2022-09-26] MEDS ORDERED: BUPIVACAINE HCL/PF 0.5% (5MG/ML) 10 ML VIAL ONE (08:05)
[2022-09-26] MEDS ORDERED: PROPOFOL 20 ML ONE ×2 (08:06→10:16)
[2022-09-26] MEDS ORDERED: MIDAZOLAM HCL 2 MG/2 ML SINGLE DOSE VIAL ONE (08:06)
[2022-09-26] MEDS ORDERED: FENTANYL CITRATE/PF 50 MCG/ML VIAL ONE ×2 (08:06→08:30)
[2022-09-26] MEDS ORDERED: ROCURONIUM BROMIDE 50 MG/5 ML SYRINGE ONE (08:06)
[2022-09-26] MEDS ORDERED: TRANEXAMIC ACID 1000 MG/10 ML VIAL IVPUSH ONE (08:23)
[2022-09-26] MEDS ORDERED: CEFAZOLIN 2 GM in DEXTROSE 5%-WATER - 100 ML IVPB ONE (08:23)
[2022-09-26] MEDS ORDERED: PROPOFOL 60 ML ONE (08:26)
[2022-09-26] MEDS ORDERED: LIDOCAINE HCL/PF 2% SDV 5ML VIAL ONE (08:31)
[2022-09-26] MEDS ORDERED: ceFAZolin SODIUM 1 GM VIAL ONE (08:31)
[2022-09-26] MEDS ORDERED: SODIUM CHLORIDE 0.9% P/F 10 ML VIAL IJ ONE (08:31)
[2022-09-26] MEDS ORDERED: EPINEPHrine/PF 1 MG/1 ML (1:1,000) AMPULE ONE (08:32)
[2022-09-26] MEDS ORDERED: ceFAZolin SODIUM 1 GM VIAL IVPB ONE ×2 (08:57)
[2022-09-26] MEDS ORDERED: ONDANSETRON 4 MG/2 ML VIAL ONE (09:05)
[2022-09-26] MEDS ORDERED: DEXAMETHASONE SOD PHOSPHATE 4 MG/1 ML VIAL ONE (09:05)
[2022-09-26] MEDS ORDERED: ePHEDrine SULFATE 50 MG/1 ML AMPULE ONE (09:19)
[2022-09-26] MEDS ORDERED: morphine SULFATE/PF 1 MG/2 ML (2cc Syringe - QUVA) EP ONE (11:38)
[2022-09-26] MEDS ORDERED: ONDANSETRON 4 MG/2 ML VIAL IVPUSH PRN (11:38)
[2022-09-26] MEDS: ACETAMINOPHEN 1000 MG/100 ML BAG IVPB PRN (17:27)
[2022-09-26] MEDS: CEFAZOLIN SODIUM 2 GM in DEXTROSE 5%-WATER 100 ML IVPB SCH (18:07)
[2022-09-26] MEDS: IBUPROFEN 800 MG/8 ML IJ IVPB PRN (23:19)
[2022-09-27] MEDS: CEFAZOLIN SODIUM 2 GM in DEXTROSE 5%-WATER 100 ML IVPB SCH (02:28)
[2022-09-27] MEDS: ACETAMINOPHEN 1000 MG/100 ML BAG IVPB PRN (07:59)
[2022-09-27 08:55] VITALS: BP 110/72; PULSE 69; RESP 18; TEMP 98
[2022-09-27 09:14] LABS: BASO % 0.6 % (0-2.0); EOS % 0.6 % (0-4.5); HEMATOCRIT 38.1 % (32.4-45.2); HEMOGLOBIN 12.6 GM/dL (10.7-15.3); MCH 31.8 pg (25.7-33.7); MCHC 33.1 g/dl (32.0-36.0); MEAN CELL VOLUME 95.9 fl (80-96); MEAN PLT VOLUME 9.1 fl (7.5-11.1); MONO % 9.7 % (3.8-10.2); NEUT % 60.1 % (42.8-82.8); PLATELET COUNT 344 10^3/uL (134-434); RBC 3.97 M/mm3 (3.60-5.2); RDW 12.7 % (11.6-15.6); WHITE BLOOD COUNT 10.2 K/mm3 (4.0-10.0)
[2022-09-27 09:46] LABS: ALBUMIN 3.4 g/dl (3.4-5.0)
[2022-09-27 09:48] LABS: BLOOD UREA NITROGEN 8.5 mg/dL (7-18); CREATININE 0.8 mg/dL (0.55-1.3)
[2022-09-27 09:50] LABS: BILIRUBIN,TOTAL 1.9 mg/dL (0.2-1); CALCIUM 8.5 mg/dL (8.5-10.1); TOT PROT 6.1 g/dl (6.4-8.2)
[2022-09-27] MEDS ORDERED: FLU VACC QS2022-23(6MOS UP)/PF 60 MCG/0.5 ML SYRINGE IM ONE (10:00)
[2022-09-27] MEDS: IBUPROFEN 800 MG/8 ML IJ IVPB PRN (14:49)
== END 2022-09-27 17:29 | disposition home or self-care (01) | DRG 983 ==
LOC: J7W 09-26 05:36 → J2C 09-26 06:19 → J3W 09-26 13:48
PROVIDERS: ADMIT Obstetrics & Gynecology; ATTEND Obstetrics & Gynecology
PROC: 0UT70ZZ Resection of Bilateral Fallopian Tubes, Open Approach (ICD-10-PCS; 2022-09-26)
PROC: 0UT90ZL Resection of Uterus, Supracervical, Open Approach (ICD-10-PCS; principal; 2022-09-26 09:00)
DX: R10.2 Pelvic and perineal pain (principal); D25.9 Leiomyoma of uterus, unspecified; E66.9 Obesity, unspecified; Z68.29 Body mass index [BMI] 29.0-29.9, adult
CPT/HCPCS: 36415; 80053; 81025; 85025; 88302-TC; 88307-TC; 94010; 94760; G0008; Q2036

== ENCOUNTER 2022-12-18 07:00 | Emergency (ER) | payer BC ==
[2022-12-18 07:17] VITALS: BP 142/85; PULSE 85; RESP 18; BMI 302.9
[2022-12-18] MEDS ORDERED: ALBUTEROL SO4 2.5/IPRATROPIUM 0.5 INH SOL 3 ML VIAL.NEB. NEB ONE ×2 (07:44→07:47)
[2022-12-18 08:55] LABS: BASO % 0.7 % (0-2.0); EOS % 2.6 % (0-4.5); HEMATOCRIT 42.1 % (32.4-45.2); HEMOGLOBIN 14.2 GM/dL (10.7-15.3); LYMPH % 31.8 % (8-40); MCH 32.5 pg (25.7-33.7); MCHC 33.8 g/dl (32.0-36.0); MEAN CELL VOLUME 95.9 fl (80-96); MEAN PLT VOLUME 8.8 fl (7.5-11.1); MONO % 14.2 % (3.8-10.2); NEUT % 50.7 % (42.8-82.8); PLATELET COUNT 299 10^3/uL (134-434); RBC 4.39 M/mm3 (3.60-5.2); RDW 13.2 % (11.6-15.6); WHITE BLOOD COUNT 6.4 K/mm3 (4.0-10.0)
[2022-12-18 09:13] LABS: CALCIUM 8.7 mg/dL (8.5-10.1)
[2022-12-18 09:14] LABS: ALBUMIN 3.6 g/dl (3.4-5.0); BLOOD UREA NITROGEN 15.3 mg/dL (7-18)
[2022-12-18 09:17] LABS: CREATININE 0.8 mg/dL (0.55-1.3)
[2022-12-18 09:19] LABS: BILIRUBIN,TOTAL 0.9 mg/dL (0.2-1); TOT PROT 6.9 g/dl (6.4-8.2)
== END 2022-12-18 10:19 | disposition home or self-care (01) ==
LOC: JER 07:00
PROC: 3E0F7GC Introduction of Other Therapeutic Substance into Respiratory Tract, Via Natural or Artificial Opening (ICD-10-PCS; principal; 2022-12-18)
DX: R06.02 Shortness of breath (principal); J45.909 Unspecified asthma, uncomplicated
CPT/HCPCS: 36415; 71045-TC-FY; 80053; 84484; 85025; 93005; 93010; 99285-25